=== PATIENT | female | born 1935 | race Caucasian/White ===

== ENCOUNTER 2017-04-19 07:52 | Day surgery (SDC) | payer OTHER ==
[2017-04-17 14:11] VITALS: BMI 30.9
[2017-04-19] MEDS ORDERED: PROPOFOL 20 ML ONE ×2 (07:56)
[2017-04-19 08:16] VITALS: TEMP 97.9
[2017-04-19 10:21] VITALS: BP 117/56; PULSE 62
== END 2017-04-19 10:20 | disposition home or self-care (01) ==
LOC: FASU-ENDO 07:52
PROVIDERS: ATTEND Internal Medicine Gastroenterology
PROC: 0DJD8ZZ Inspection of Lower Intestinal Tract, Via Natural or Artificial Opening Endoscopic (ICD-10-PCS; principal; 2017-04-19 09:30)
DX: Z12.11 Encounter for screening for malignant neoplasm of colon (principal); K57.30 Diverticulosis of large intestine without perforation or abscess without bleeding; R10.9 Unspecified abdominal pain

== ENCOUNTER 2022-03-14 17:07 | Observation (INO) | payer OTHER ==
[2022-03-14 20:42] LABS: INR 2.12 (0.83-1.09); PROTHROMBIN TIME (PATIENT) 24.6 SEC (9.7-13.0)
[2022-03-14 20:45] LABS: ACTIVATED PTT 34.3 SECONDS (25.2-36.5)
[2022-03-14 20:54] LABS: CALCIUM 9.1 mg/dL (8.5-10.1)
[2022-03-14 20:55] LABS: ALBUMIN 3.5 g/dl (3.4-5.0); BLOOD UREA NITROGEN 28.2 mg/dL (7-18)
[2022-03-14] MEDS ORDERED: morphine CARPU-JECT 2 MG/1 ML DISP.SYRIN IVPUSH ONE (20:55)
[2022-03-14 20:58] LABS: CREATININE 0.8 mg/dL (0.55-1.3)
[2022-03-14 20:59] LABS: BILIRUBIN,TOTAL 1.8 mg/dL (0.2-1); TOT PROT 6.3 g/dl (6.4-8.2)
[2022-03-14] MEDS ORDERED: ONDANSETRON 4 MG/2 ML VIAL IVPUSH ONE (21:09)
[2022-03-14] MEDS ORDERED: ONDANSETRON 4 MG/2 ML VIAL ONE (21:09)
[2022-03-14 21:33] LABS: BASO % 1.7 % (0-2.0); EOS % 0.4 % (0-4.5); HEMATOCRIT 19.5 % (32.4-45.2); MCH 32.6 pg (25.7-33.7); MCHC 34.5 g/dl (32.0-36.0); MEAN CELL VOLUME 94.4 fl (80-96); MEAN PLT VOLUME 9.8 fl (7.5-11.1); MONO % 0.8 % (3.8-10.2); NEUT % 89.1 % (42.8-82.8); PLATELET COUNT 176 10^3/uL (134-434); RBC 2.07 M/mm3 (3.60-5.2); WHITE BLOOD COUNT 6.4 K/mm3 (4.0-10.0)
[2022-03-14 21:40] LABS: N-TERMINAL BNP 2594.6 pg/ml (5-450)
[2022-03-14 21:44] LABS: RDW 24.2 % (11.6-15.6)
[2022-03-14 21:46] LABS: HEMOGLOBIN 6.7 GM/dL (10.7-15.3)
[2022-03-14 22:28] LABS: ANISOCYTOSIS 2+; MACROCYTOSIS 1+; OVALOCYTE 2+
[2022-03-14 23:03] VITALS: RESP 18
[2022-03-15] MEDS: INSULIN SLIDING SCALE (NOVOLOG) 1 VIAL SQ SCH ×4 (06:39→21:05)
[2022-03-15 09:29] LABS: ALBUMIN 3.2 g/dl (3.4-5.0); BLOOD UREA NITROGEN 30.8 mg/dL (7-18); CALCIUM 8.8 mg/dL (8.5-10.1); MAGNESIUM 1.5 mg/dL (1.8-2.4)
[2022-03-15 09:32] LABS: CREATININE 0.9 mg/dL (0.55-1.3); PHOSPHOROUS 3.9 mg/dL (2.5-4.9)
[2022-03-15 09:33] LABS: BILIRUBIN,TOTAL 2.8 mg/dL (0.2-1); TOT PROT 5.8 g/dl (6.4-8.2)
[2022-03-15] MEDS: DIGOXIN 0.125 MG TABLET PO SCH (10:06)
[2022-03-15] MEDS: FAMOTIDINE 20 MG TABLET PO SCH (10:06)
[2022-03-15] MEDS: LIDOCAINE 5% TOPICAL PATCH TP SCH (10:07)
[2022-03-15] MEDS: ACETAMINOPHEN 1000 MG/100 ML BAG IVPB PRN ×3 (11:23→23:52)
[2022-03-15 11:43] LABS: EOS % 0.2 % (0-4.5); HEMATOCRIT 21.9 % (32.4-45.2); HEMOGLOBIN 7.8 GM/dL (10.7-15.3); LYMPH % 9.6 % (8-40); MCH 31.2 pg (25.7-33.7); MCHC 35.5 g/dl (32.0-36.0); MEAN CELL VOLUME 87.7 fl (80-96); MEAN PLT VOLUME 9.3 fl (7.5-11.1); NEUT % 82.2 % (42.8-82.8); PLATELET COUNT 145 10^3/uL (134-434); RBC 2.49 M/mm3 (3.60-5.2); RDW 21.8 % (11.6-15.6); WHITE BLOOD COUNT 6.4 K/mm3 (4.0-10.0)
[2022-03-15] MEDS ORDERED: MAGNESIUM SULF 50% (8.12 MEQ/2 ML-1 GM VIAL) IVPB ONE (14:52)
[2022-03-15] MEDS ORDERED: MAGNESIUM 2GM/50ML STERILE WATER IVPB IVPB ONE (17:00)
[2022-03-15] MEDS ORDERED: LIDOCAINE PATCH REMOVAL MC SCH (22:00)
[2022-03-15] MEDS ORDERED: ATORVASTATIN CA 40 MG TABLET (FP) PO SCH (22:00)
[2022-03-16] MEDS ORDERED: oxyCODONE HCL 5 MG TABLET PO ONE ×2 (00:49→10:05)
[2022-03-16] MEDS ORDERED: morphine CARPU-JECT 2 MG/1 ML DISP.SYRIN IM ONE (04:13)
[2022-03-16] MEDS: INSULIN SLIDING SCALE (NOVOLOG) 1 VIAL SQ SCH ×3 (06:02→16:50)
[2022-03-16] MEDS: DIGOXIN 0.125 MG TABLET PO SCH (09:34)
[2022-03-16] MEDS: FAMOTIDINE 20 MG TABLET PO SCH (09:35)
[2022-03-16] MEDS: LIDOCAINE 5% TOPICAL PATCH TP SCH (09:35)
[2022-03-16] MEDS ORDERED: ACETAMINOPHEN 1000 MG/100 ML BAG IVPB PRN (09:36)
[2022-03-16] MEDS ORDERED: SODIUM ZIRCONIUM CYCLOSILICATE (LOKELMA) 5 GM PACKET PO SCH (10:00)
[2022-03-16 10:43] LABS: HEMATOCRIT 23.3 % (32.4-45.2); HEMOGLOBIN 8.3 GM/dL (10.7-15.3); MCH 30.2 pg (25.7-33.7); MCHC 35.5 g/dl (32.0-36.0); MEAN PLT VOLUME 8.7 fl (7.5-11.1); PLATELET COUNT 120 10^3/uL (134-434); RBC 2.74 M/mm3 (3.60-5.2); RDW 19.5 % (11.6-15.6); WHITE BLOOD COUNT 3.2 K/mm3 (4.0-10.0)
[2022-03-16 11:13] LABS: ALBUMIN 2.9 g/dl (3.4-5.0); BLOOD UREA NITROGEN 33.3 mg/dL (7-18); CALCIUM 8.6 mg/dL (8.5-10.1); MAGNESIUM 1.9 mg/dL (1.8-2.4)
[2022-03-16 11:16] LABS: CREATININE 0.9 mg/dL (0.55-1.3); PHOSPHOROUS 3.9 mg/dL (2.5-4.9)
[2022-03-16 11:18] LABS: BILIRUBIN,TOTAL 1.8 mg/dL (0.2-1); TOT PROT 5.6 g/dl (6.4-8.2)
[2022-03-16 12:02] LABS: ANISOCYTOSIS 0; HELMET CELLS 0; HOWELL-JOLLY BODIES 0; MACROCYTOSIS 0; OVALOCYTE 0; ROULEAU 0; SICKELED CELLS 0; TARGET CELLS 0; TEAR DROP CELLS 0; TOXIC GRANULATION 0
[2022-03-16 12:35] VITALS: BMI 28.6
[2022-03-16 14:30] VITALS: BP 126/45; PULSE 67; TEMP 98.2
== END 2022-03-16 18:34 | disposition home health service (06) ==
LOC: JER 17:07 → INTOOBSV 21:52 → JERBED 21:52 → UNDOADMOB 21:52 → JERBED 03-15 02:07 → J6S 03-15 02:36 → JERBED 03-16 17:07 → J6S 03-16 17:07 → UNDODISOB 03-16 18:34
PROVIDERS: ADMIT Internal Medicine; ATTEND Internal Medicine
PROC: 30233N1 Transfusion of Nonautologous Red Blood Cells into Peripheral Vein, Percutaneous Approach (ICD-10-PCS; principal; 2022-03-16)
PROC: 3E033GC Introduction of Other Therapeutic Substance into Peripheral Vein, Percutaneous Approach (ICD-10-PCS; 2022-03-16)
DX: D64.89 Other specified anemias (principal); D46.Z Other myelodysplastic syndromes; C79.51 Secondary malignant neoplasm of bone; C22.8 Malignant neoplasm of liver, primary, unspecified as to type; E11.65 Type 2 diabetes mellitus with hyperglycemia; K21.9 Gastro-esophageal reflux disease without esophagitis; I10 Essential (primary) hypertension; M25.552 Pain in left hip; N17.9 Acute kidney failure, unspecified; I48.91 Unspecified atrial fibrillation; E87.1 Hypo-osmolality and hyponatremia; E87.5 Hyperkalemia; I25.10 Atherosclerotic heart disease of native coronary artery without angina pectoris; E83.42 Hypomagnesemia; R60.0 Localized edema; Z79.01 Long term (current) use of anticoagulants; Z79.82 Long term (current) use of aspirin; Z79.84 Long term (current) use of oral hypoglycemic drugs; Z95.5 Presence of coronary angioplasty implant and graft; Z92.3 Personal history of irradiation
CPT/HCPCS: 36415; 36430; 70450-TC; 71045-TC-FY; 72170-TC-FY; 73502-TC-LT-FY; 73552-TC-LT-FY; 80053; 82607; 82728; 82746; 82962; 83010; 83540; 83550; 83615; 83735; 83880; 84100; 84466; 85025; 85045; 85610; 85730; 86850; 86870; 86900; 86901; 86902; 86922; 93005; 93010; 93306-TC; 96365; 96366; 96375; 96376; 97116-GP; 97162-GP; 99285-25; C9803-CS; G0378; P9058; U0003; U0005